=== PATIENT | male | born 1995 | race African-American/Black ===

== ENCOUNTER 2019-10-12 23:08 | Emergency (ER) | payer SELFPAY | END 2019-10-12 23:55 | disposition home or self-care (01) | LOC: ERS 23:08 | DX: M25.531 Pain in right wrist (principal) | CPT/HCPCS: 99281 ==

== ENCOUNTER 2019-10-29 17:32 | Emergency (ER) | payer SELFPAY ==
--- NOTE | 2019-10-29 18:45 | RAD ---
2 view chest: [10/29/2019] Comparison:12/21/2008 HISTORY: Productive cough, fever and congestion with sore throat FINDINGS: Heart and mediastinal contours are grossly unremarkable. No pneumothorax or pleural fluid. No focal consolidation or alveolar edema. IMPRESSION: No acute findings.
== END 2019-10-29 19:37 | disposition home or self-care (01) ==
LOC: ERS 17:32
DX: J20.9 Acute bronchitis, unspecified (principal)
CPT/HCPCS: 71046

== ENCOUNTER 2019-11-20 19:23 | Emergency (ER) | payer SELFPAY | END 2019-11-20 20:05 | disposition home or self-care (01) | LOC: ERS 19:23 | DX: M25.531 Pain in right wrist (principal); F17.210 Nicotine dependence, cigarettes, uncomplicated | CPT/HCPCS: 99281 ==

== ENCOUNTER 2019-12-02 19:08 | Emergency (ER) | payer SELFPAY ==
[2019-12-02 20:08] LABS: Bilirubin Negative (Negative); Blood, Urine Negative (Negative); Clarity Turbid (Clear); Glucose, Urine (Dipstick) Normal (Negative); Leukocyte Negative Leu/uL (Negative); Nitrite Negative (Negative); Protein, Urine (Dipstick) 10 mg/dL (Neg-Trace); Urobilinogen 3 mg/dL (Less than 2)
== END 2019-12-02 20:54 | disposition home or self-care (01) ==
LOC: ERS 19:08
DX: Z00.00 Encounter for general adult medical examination without abnormal findings (principal); F90.9 Attention-deficit hyperactivity disorder, unspecified type; F17.210 Nicotine dependence, cigarettes, uncomplicated
CPT/HCPCS: 81003; 99283

== ENCOUNTER 2019-12-21 23:39 | Emergency (ER) | payer SELFPAY ==
[2019-12-22] MEDS ORDERED: Adacel (T-DAP) 0.5 ML SYRINGE ONE (00:08)
[2019-12-22] MEDS ORDERED: Triple Antibiotic Oint 1 GM Packet ONE (00:19)
== END 2019-12-22 00:30 | disposition home or self-care (01) ==
LOC: ERS 23:39
DX: S61.214A Laceration without foreign body of right ring finger without damage to nail, initial encounter (principal); F90.9 Attention-deficit hyperactivity disorder, unspecified type; F17.210 Nicotine dependence, cigarettes, uncomplicated; Z23 Encounter for immunization; W26.0XXA Contact with knife, initial encounter; Y99.0 Civilian activity done for income or pay
CPT/HCPCS: 90471; 90715

== ENCOUNTER 2020-01-19 19:54 | Emergency (ER) | payer SELFPAY ==
[2020-01-19] MEDS ORDERED: Ketorolac Tromethamine 30 MG/ML VIAL ONE (20:20)
[2020-01-19 20:24] LABS: #Basophils 0.1 thou/uL (0.0-0.2); #Lymphocytes 2.4 thou/uL (1.20-3.40); #Monocytes 0.7 thou/uL (0.11-0.59); %Eosinophils 0.1 % (0.0-10.0); %Lymphocytes 26.4 % (21.0-51.0); %Monocytes 7.2 % (0.0-10.0); %Neutrophils 65.3 % (42.0-75.0); Hemoglobin 17.2 g/dL (14.0-18.0); Mean Corpuscular HGB CONC 34.7 g/dL (32.0-36.0); Mean Corpuscular Hemoglobin 31.4 pg (27.0-31.0); Mean Corpuscular Volume 90.6 fL (78.0-98.0); Mean Platelet Volume 8.8 fL (7.4-10.4); Platelet Count 176 thou/uL (130-400); RBC Distribution Width 12.3 % (11.5-14.5); Red Blood Cell (RBC) Count 5.47 mill/uL (4.70-6.10); White Blood Cell (WBC) Count 9.1 thou/uL (4.8-10.8)
[2020-01-19 20:41] LABS: ALT (SGPT) 22 U/L (8-55); AST (SGOT) 21 U/L (5-34); Albumin 4.8 g/dL (3.5-5.0); Alkaline Phosphatase 65 U/L (40-110); Anion Gap 15 mmol/L (10-20); BUN (Urea Nitrogen) 15 mg/dL (8.9-20.6); Bilirubin, Total 0.7 mg/dL (0.2-1.2); Calc. Creatinine Clearance 0 mL/min (70-130); Calcium 10.3 mg/dL (7.8-10.44); Carbon Dioxide 27 mmol/L (22-29); Chloride 102 mmol/L (98-107); Estimated GFR-MDRD Greater than 90; Globulin 3.6 g/dL (2.4-3.5); Glucose 85 mg/dL (70-105); Lipase 33 U/L (8-78); Potassium 4.8 mmol/L (3.5-5.1); Protein, Total 8.4 g/dL (6.0-8.3); Sodium 139 mmol/L (136-145)
--- NOTE | 2020-01-19 20:42 | RAD ---
PORTABLE CHEST: 01/19/20 HISTORY: Chest pain. Lung dong are clear. Heart and mediastinum appear normal. Vasculature normal. IMPRESSION: Unremarkable portable chest. POS: [facility]
== END 2020-01-19 21:21 ==
LOC: ERS 19:54
DX: R07.89 Other chest pain (principal); F90.9 Attention-deficit hyperactivity disorder, unspecified type; Z87.891 Personal history of nicotine dependence
CPT/HCPCS: 71045; 80053; 83690; 84484; 85025; 93005; 96374; J1885

== ENCOUNTER 2020-07-26 00:58 | Emergency (ER) | payer SELFPAY ==
[2020-07-26] MEDS ORDERED: Boostrix 0.5 ML VIAL ONE (01:57)
--- NOTE | 2020-07-26 07:56 | RAD ---
LEFT ANKLE 3 VIEWS: HISTORY: Injury left ankle pain FINDINGS: Soft tissue swelling is present. The ankle mortise is maintained. No acute fracture or dislocation is identified.
== END 2020-07-26 03:52 | disposition home or self-care (01) ==
LOC: ERS 00:58
DX: S90.02XA Contusion of left ankle, initial encounter (principal); S00.03XA Contusion of scalp, initial encounter; F90.9 Attention-deficit hyperactivity disorder, unspecified type; Z87.891 Personal history of nicotine dependence; V09.20XA Pedestrian injured in traffic accident involving unspecified motor vehicles, initial encounter
CPT/HCPCS: 90471; 90715

== ENCOUNTER 2021-03-17 14:28 | Emergency (ER) | payer SELFPAY ==
[2021-03-17] MEDS ORDERED: Ketorolac Tromethamine 30 MG/ML VIAL ONE (16:28)
== END 2021-03-17 16:41 | disposition home or self-care (01) ==
LOC: ERS 14:28
DX: S83.91XA Sprain of unspecified site of right knee, initial encounter (principal); X50.1XXA Overexertion from prolonged static or awkward postures, initial encounter; Z87.891 Personal history of nicotine dependence
CPT/HCPCS: 96372; J1885

== ENCOUNTER 2021-07-16 17:23 | Emergency (ER) | payer SELFPAY ==
[2021-07-16] MEDS ORDERED: Boostrix 0.5 ML (Tdap) VIAL ONE (18:31)
== END 2021-07-16 19:25 ==
LOC: ERS 17:23
DX: S06.9X1A Unspecified intracranial injury with loss of consciousness of 30 minutes or less, initial encounter (principal); S01.01XA Laceration without foreign body of scalp, initial encounter; Z87.891 Personal history of nicotine dependence; Z23 Encounter for immunization; Y04.8XXA Assault by other bodily force, initial encounter
CPT/HCPCS: 12002; 70450; 72125; 90471; 90715